=== PATIENT | male | born 1975 | race Caucasian/White ===

== ENCOUNTER 2019-08-17 15:39 | Emergency (ER) | payer BC ==
[~2019-08-17] VITALS: Ht 177.8 cm; Wt 90.9 kg
[2019-08-17 15:51] VITALS: TEMP 98.7
[2019-08-17] MEDS ORDERED: MEDROL 4MG DOSPA4 MG PO (17:20)
[2019-08-17 17:35] VITALS: BP 110/76; PULSE 85
== END 2019-08-17 17:35 | disposition home or self-care (01) ==
LOC: COL.ER 15:39
DX: M54.16 Radiculopathy, lumbar region (principal)